=== PATIENT | male | born 2000 | race Hispanic/Latino ===

== ENCOUNTER 2024-12-21 21:41 | Emergency (ER) | payer SELFPAY ==
[~2024-12-21] VITALS: Ht 170.2 cm; Wt 93.9 kg
[2024-12-21] MEDS ORDERED: ERYT1OIN7 OP (22:12)
--- NOTE | 2024-12-21 22:12 | ERN ---
ED Note History of Present Illness Stated Complaint: C/O FO IN LEFT EYE Chief Complaint: Eye Problems Time Seen by MD: 21:51 Dictation: 23-year-old male presents to ER complaints of left eye pain, states something flew into his eye earlier today around noon. Denies vision problems. Allergies: Coded Allergies: No Known Allergies (Unverified Allergy, Unknown, 12/21/24) Home Meds Active Scripts Erythromycin Base (Erythromycin) 5 Mg/Gram (0.5 %) Oint...g., 1 APPL OP QID for 5 Days, #15 GM 0 Refills apply 1 cm ribbon into the lower conjunctival sac Prov:JATIN GAITAN BAR WAITER/WAITRESS 12/21/24 Past Medical History Past Medical History: No Pertinent History Surgical History: None Review of System Dictation CONSTITUTIONAL: NEGATIVE FOR FEVER,CHILLS, AND WEIGHT LOSS EYES: NEGATIVE FOR INJURY, PAIN,REDNESS, AND DISCHARGE ENT: Positive for left eye pain and swelling, positive foreign body CARDIOVASCULAR: NEGATIVE FOR CHEST PAIN, PALPITATIONS, AND EDEMA RESPIRATORY: NEGATIVE FOR SHORTNESS OF BREATH, COUGH, WHEEZING, AND PLEURITIC CHEST PAIN ABDOMEN/GI: NEGATIVE FOR ABDOMINAL PAIN, NAUSEA, VOMITING AND DIARRHEA. BACK: NEGATIVE FOR PAIN OR INJURY : NEGATIVE FOR INJURY, BLEEDING AND DISCHARGE MS/EXTREMITY: NEGATIVE FOR INJURY AND DEFORMITY SKIN: NEGATIVE FOR RASH, AND DISCOLORATION NEURO: NEGATIVE FOR HEADACHE, WEAKNESS, NUMBNESS, TINGLING, AND SEIZURE PSYCH: NEGATIVE FOR SUICIDE IDEATION, HOMICIDAL IDEATION, AND HALLUCINATIONS ALLERGY/IMMUNOLOGY: NEGATIVE FOR HIVES, RASH, AND ALLERGIES ALL SYSTEMS NEGATIVE, EXCEPT NOTED ABOVE. 13 POINT REVIEW OF SYSTEMS ASSESSED AND ALL NEGATIVE EXCEPT FOR ABOVE. Initial Vital Sign VS Vital Signs Date Time Temp Pulse Resp B/P (MAP) Pulse Ox O2 Delivery O2 Flow Rate FiO2 12/21/24 21:43 98.2 5 7 151/93 207 Room Air 12/21/24 22:24 0 21 Physical Exam Dictation General: awake, alert, NAD Head/Face: Normocephalic, atraumatic Eyes: PERRL, EOMI, vision at baseline, left eye with corneal abrasion at 9 o'clock ENT: oral cavity clear, TMs clear, no signs of infection Neck: Trachea midline, supple, no nuchal rigidity Cardiovascular: RRR, normal no JVD Respiratory: CTAB, no respiratory distress, No rales or wheezes Abdomen: Soft, non-tender, non-distended, normal bowel sounds, no guarding or rebound. Skin: Warm, dry, normal turgor, no rash MS/Extremity: Pulses equal, no cyanosis, neurovascular intact, FROM Neuro: COAx4, GCS 15, strength 5/5, CN 2-12 intact, normal cerebellar exam, normal gait, Psych: Normal behavior, mood, and affect normal ED Course ED Course Orders Procedure Category Date Status Time Fluorescein Sodium PHA 12/21/24 Complete (Cibby-A-Brpvf At) 21:53 Tetracaine Hcl PHA 12/21/24 Complete (Pontocaine 0.5% 21:53 Ketorolac PHA 12/21/24 In Process Tromethamine 30mg/Ml 22:30 Current Medications Medications (Trade) Dose Ordered Sig/Katarzyna Route PRN Reason Start Time Stop Time Status Last Admin Dose Admin Fluorescein Sodium (Bfmqj-M-Nmmkf At) 1 strip STK-MED ONCE .ROUTE 12/21/24 21:53 12/21/24 21:53 DC Ketorolac Tromethamine (toRADol) 30 mg ONCE ONCE IM 12/21/24 22:30 12/21/24 22:31 Tetracaine HCl (Pontocaine 0.5% Ophth Soln) 20 drop STK-MED ONCE .ROUTE 12/21/24 21:53 12/21/24 21:53 DC Vital Signs Date Time Temp Pulse Resp B/P (MAP) Pulse Ox O2 Delivery O2 Flow Rate FiO2 12/21/24 22:24 98.4 66 18 142/74 98 Room Air* 0 21 12/21/24 21:43 98.2 5 7 151/93 207 Room Air Medical Decision Making MDM MDM: Differential diagnosis: Corneal abrasion, foreign body Rationale: Tests considered and ordered secondary to shared decision making include: labs, ECG and radiology Previous outside records reviewed: Old ER visits. Risk of complication and/or morbidity or mortality of patient management: None Medications-Per medication reconciliation Need for hospitalization: Patient does NOT meet criteria for hospitalization. Need for emergency major/minor surgery: No There are no social concerns with this patient. Prescription drug management Prescriptions will include symptomatic care Patient's prior external medical records from other ER visits were reviewed by me as indicated. Prior testing and results from previous visits were reviewed. Prior tests were taken into account with medical decision making and resource utilization, independent historian/historians were used to obtain complete medical history. I independently interpreted the test that were performed, results were reviewed by me and considered findings on radiology if ordered. Eye exam done with Wood's lamp and noted corneal abrasion at 9 o'clock DX & DISP Disposition: Discharge Departure Impression: Primary Impression: Corneal abrasion Condition: Stable Assign Patient to: Medication as prescribed. Follow up with a optometry if symptoms persist. Scripts Erythromycin Base (Erythromycin) 5 Mg/Gram (0.5 %) Oint...g. 1 APPL OP QID for 5 Days, #15 GM 0 Refills apply 1 cm ribbon into the lower conjunctival sac Prov: JATIN GAITAN 12/21/24 Referrals: SELF,REFERRAL (PCP) JATIN GAITAN Dec 21, 2024 22:12
[2024-12-21 22:24] VITALS: BP 142/74; PULSE 66; RESP 18; TEMP 98.5; O2SAT 98
[2024-12-21] MEDS: TETRACAINE HCL 0.5% 4 ML OPHTH SOLN ONE (22:24)
[2024-12-21] MEDS: FLUORESCEIN SODIUM 1 STRIP STRIP ONE (22:24)
== END 2024-12-21 22:38 | disposition home or self-care (01) ==
LOC: EDH 21:41
DX: S05.00XA Injury of conjunctiva and corneal abrasion without foreign body, unspecified eye, initial encounter (principal); Z79.899 Other long term (current) drug therapy; X58.XXXA Exposure to other specified factors, initial encounter; Y93.89 Activity, other specified; Y92.89 Other specified places as the place of occurrence of the external cause; Y99.8 Other external cause status
CPT/HCPCS: 99284; 96372; J1885